=== PATIENT | male | born 1940 | race Caucasian/White ===

== ENCOUNTER 2022-07-15 09:44 | Outpatient (CLI) | payer BC | END 2022-07-15 09:45 | disposition home or self-care (01) | LOC: BICRAD 09:44 | PROVIDERS: ATTEND Family Medicine | DX: M16.11 Unilateral primary osteoarthritis, right hip (principal); M25.551 Pain in right hip; M53.3 Sacrococcygeal disorders, not elsewhere classified | CPT/HCPCS: 72202 ==

== ENCOUNTER 2024-02-24 11:25 | Outpatient (CLI) | payer MEDICARE, OTHER | END 2024-02-24 11:26 | disposition home or self-care (01) | LOC: BICRAD 11:25 | PROVIDERS: ATTEND Family Medicine | DX: R05.3 Chronic cough (principal) | CPT/HCPCS: 71046 ==